=== PATIENT | female | born 1995 | race African-American/Black ===

== ENCOUNTER 2022-09-10 14:07 | Inpatient (IN) | payer OTHER ==
[~2022-09-10] VITALS: Ht 160 cm; Wt 49.9 kg
[2022-09-10] MEDS ORDERED: TESTOSTERONE (14:12)
[2022-09-10] MEDS ORDERED: FAMOTIDINE 20MG/2ML VIAL IV STA (14:48)
[2022-09-10] MEDS ORDERED: MAGNESIUM/ALUMINUM HYDROXIDE/SIMETHICONE 30ML UDC PO STA ×2 (14:48)
[2022-09-10] MEDS ORDERED: ONDANSETRON HCL 4MG/2ML INJ IV STA (14:48)
[2022-09-10] MEDS ORDERED: VISCOUS LIDOCAINE 2% 15 ML UDC PO STA (14:48)
[2022-09-10] MEDS ORDERED: HALOPERIDOL LACTATE 5MG/ML VIAL IM ONE (15:00)
[2022-09-10 16:02] LABS: BASOPHILS % 0.4 % (0.0-2.0); EOSINOPHILS % 0.1 % (0.0-5.0); HEMATOCRIT. 58.4 % (36.0-48.0); HEMOGLOBIN. 19.5 g/dL (12.0-16.0); LYMPHOCYTES % 9.5 % (20.0-50.0); MEAN CORPUSCULAR HEMOGLOBIN 35.1 pg (28.0-32.0); MEAN CORPUSCULAR VOLUME 105.3 fL (81.0-99.0); MEAN PLATELET VOLUME 7.7 fl (7.4-10.4); MONOCYTES % 7.5 % (2.0-8.0); NEUTROPHILS % 82.5 % (40.0-76.0); PLATELET 155 x1000/uL (130-400); RED BLOOD CELL COUNT 5.55 mill/uL (4.2-5.4); RED CELL DISTRIBUTION WIDTH 14.7 % (11.6-14.6)
[2022-09-10 16:13] LABS: CHLORIDE 102 mEq/L (98-107)
[2022-09-10 16:24] LABS: ETHANOL BLOOD < 10 mg/dL
[2022-09-10 16:26] LABS: HCG SCREEN NEGATIVE
[2022-09-10] MEDS ORDERED: KETOROLAC 15MG/ML VIAL IV ONE (16:45)
[2022-09-10] MEDS ORDERED: IOHEXOL-300 100 ML BOTTLE ONE (19:12)
[2022-09-10] MEDS ORDERED: MORPHINE SULFATE 4 MG/ML CPJ (NOT FOR IM USE) IV ONE (19:15)
[2022-09-10] MEDS ORDERED: MEROPENEM 1,000 MG in SODIUM CHLORIDE 0.9% 100 ML IV SCH (19:30)
[2022-09-11] MEDS ORDERED: HYDROCODONE/ACETAMINOPHEN 5/325MG TABLET PO PRN (02:00)
[2022-09-11 05:00] VITALS: BP 132/80
[2022-09-11 05:05] VITALS: BP 132/80
[2022-09-11] MEDS ORDERED: NALOXONE HCL 0.4MG/ML VIAL IV PRN (06:00)
[2022-09-11] MEDS: DEXT 5%/0.45% NACL KCL 20MEQ/L 1,000 ML IV SCH ×2 (07:00→21:24)
[2022-09-11 08:00] VITALS: BP 143/88
[2022-09-11] MEDS: PANTOPRAZOLE SODIUM 40 MG/VIAL IV SCH (09:25)
[2022-09-11] MEDS: ONDANSETRON HCL 4MG/2ML INJ IV PRN ×2 (10:08→18:56)
[2022-09-11] MEDS: MORPHINE SULFATE 2 MG/ML CPJ (NOT FOR IM USE) IV PRN ×3 (10:09→18:57)
[2022-09-11 12:00] VITALS: BP 135/92
[2022-09-11] MEDS ORDERED: LEVOFLOXACIN 750MG PREMIX 150 ML IV SCH (13:00)
[2022-09-11 13:18] LABS: BASOPHILS % 0.1 % (0.0-2.0); HEMATOCRIT. 56.6 % (36.0-48.0); HEMOGLOBIN. 19.1 g/dL (12.0-16.0); LYMPHOCYTES % 7.1 % (20.0-50.0); MEAN CORPUSCULAR HEMOGLOBIN 35.3 pg (28.0-32.0); MEAN CORPUSCULAR VOLUME 104.9 fL (81.0-99.0); NEUTROPHILS % 82.8 % (40.0-76.0); RED CELL DISTRIBUTION WIDTH 14.7 % (11.6-14.6)
[2022-09-11 13:19] LABS: CHLORIDE 103 mEq/L (98-107)
[2022-09-11 13:28] LABS: CREATINE KINASE 122 IU/L (26-192)
[2022-09-11 13:46] LABS: INR 1.3; PROTHROMBIN TIME 13.7 sec (9.6-11.0)
[2022-09-11 14:02] LABS: PLATELET 119 x1000/uL (130-400)
[2022-09-11] MEDS: METRONIDAZOLE 500 MG PREMIX 100 ML IV SCH ×2 (14:57→21:23)
[2022-09-11 16:00] VITALS: BP 147/97
[2022-09-11 16:06] LABS: CLARITY URINE CLEAR (CLEAR); COLOR URINE DARK YELLOW (YELLOW); KETONES URINE 1+ (NEGATIVE); LEUKOCYTE ESTERASE URINE NEGATIVE (NEGATIVE); NITRITE URINE NEGATIVE (NEGATIVE); OCCULT BLOOD URINE 3+ (NEGATIVE); PH URINE 6.5 (4.5-8.0); PROTEIN URINE 2+ (NEGATIVE); SPECIFIC GRAVITY URINE >1.040 (1.005-1.030)
[2022-09-11 16:33] LABS: *AMPHETAMINES SCREEN URINE NEGATIVE (NEGATIVE); *BARBITURATES SCREEN URINE NEGATIVE (NEGATIVE); *BENZODIAZEPINES SCREEN URINE NEGATIVE (NEGATIVE); *COCAINE SCREEN URINE NEGATIVE (NEGATIVE); METHADONE URINE SCREEN NEGATIVE (NEGATIVE); PHENCYCLIDINE URINE SCREEN NEGATIVE (NEGATIVE)
[2022-09-11 16:35] LABS: CANNABINOID URINE SCREEN PRESUMTIVE POSITIVE (NEGATIVE); OPIATES URINE SCREEN PRESUMTIVE POSITIVE (NEGATIVE)
[2022-09-11 20:00] VITALS: BP 133/86
[2022-09-11] MEDS: HYDROMORPHONE HCL/PF 2MG/ML CPJ IV PRN (21:30)
[2022-09-12] VITALS: BP 134/86
[2022-09-12 04:14] VITALS: BP 130/67
[2022-09-12] MEDS: DEXT 5%/0.45% NACL KCL 20MEQ/L 1,000 ML IV SCH ×4 (05:11→23:00)
[2022-09-12] MEDS: METRONIDAZOLE 500 MG PREMIX 100 ML IV SCH ×3 (05:11→20:38)
[2022-09-12] MEDS: ONDANSETRON HCL 4MG/2ML INJ IV PRN ×4 (05:41→20:26)
[2022-09-12 07:27] LABS: HEMATOCRIT. 54.1 % (36.0-48.0); HEMOGLOBIN. 18.3 g/dL (12.0-16.0); MEAN CORPUSCULAR HEMOGLOBIN 35.7 pg (28.0-32.0); MEAN CORPUSCULAR VOLUME 105.2 fL (81.0-99.0); MEAN PLATELET VOLUME 9.1 fl (7.4-10.4); PLATELET 88 x1000/uL (130-400); RED BLOOD CELL COUNT 5.14 mill/uL (4.2-5.4); RED CELL DISTRIBUTION WIDTH 14.6 % (11.6-14.6)
[2022-09-12 08:00] VITALS: BP 155/91
[2022-09-12] MEDS: PANTOPRAZOLE SODIUM 40 MG/VIAL IV SCH (08:11)
[2022-09-12] MEDS: HYDROMORPHONE HCL/PF 2MG/ML CPJ IV PRN ×3 (10:36→20:36)
[2022-09-12 11:02] LABS: CHLORIDE 101 mEq/L (98-107)
[2022-09-12 11:27] LABS: AMYLASE 378 IU/L (25-115)
[2022-09-12 12:00] VITALS: BP 135/80
[2022-09-12] MEDS: CEFEPIME 1,000 MG in DEXTROSE 5% WATER 50 ML IV SCH (13:28)
[2022-09-12 14:08] LABS: PLATELET ESTIMATE DECREASED
[2022-09-12 16:00] VITALS: BP 154/91
[2022-09-12 20:00] VITALS: BP 159/109
[2022-09-13] VITALS: BP 124/81
[2022-09-13] MEDS: ONDANSETRON HCL 4MG/2ML INJ IV PRN ×6 (00:23→21:36)
[2022-09-13] MEDS: HYDROMORPHONE HCL/PF 2MG/ML CPJ IV PRN ×5 (00:27→21:43)
[2022-09-13 04:09] VITALS: BP 144/99
[2022-09-13] MEDS: METRONIDAZOLE 500 MG PREMIX 100 ML IV SCH ×3 (05:00→21:36)
[2022-09-13] MEDS: DEXT 5%/0.45% NACL KCL 20MEQ/L 1,000 ML IV SCH (07:00)
[2022-09-13 07:40] LABS: HEMATOCRIT. 50.3 % (36.0-48.0); HEMOGLOBIN. 17.3 g/dL (12.0-16.0); MEAN CORPUSCULAR HEMOGLOBIN 35.9 pg (28.0-32.0); MEAN CORPUSCULAR VOLUME 104.2 fL (81.0-99.0); RED BLOOD CELL COUNT 4.83 mill/uL (4.2-5.4); RED CELL DISTRIBUTION WIDTH 14.5 % (11.6-14.6)
[2022-09-13 08:00] VITALS: BP 112/60
[2022-09-13] MEDS: PANTOPRAZOLE SODIUM 40 MG/VIAL IV SCH (09:00)
[2022-09-13 12:00] VITALS: BP 125/85
[2022-09-13] MEDS: CEFEPIME 1,000 MG in DEXTROSE 5% WATER 50 ML IV SCH (12:18)
[2022-09-13 16:00] VITALS: BP 128/87
[2022-09-13] MEDS: METOCLOPRAMIDE HCL 10MG/2ML VIAL IV SCH ×2 (17:23→23:44)
[2022-09-13 18:24] LABS: MEAN PLATELET VOLUME 9.3 fl (7.4-10.4); PLATELET 78 x1000/uL (130-400)
[2022-09-13 18:26] LABS: PLATELET ESTIMATE DECREASED
[2022-09-13] MEDS ORDERED: DIATR MEGLU/DIATRIZOATE SOLN 30ML PO NR (20:00)
[2022-09-13 20:01] VITALS: BP 95/71
[2022-09-14 00:19] VITALS: BP 126/51
[2022-09-14] MEDS: ONDANSETRON HCL 4MG/2ML INJ IV PRN ×3 (02:12→13:59)
[2022-09-14] MEDS: HYDROMORPHONE HCL/PF 2MG/ML CPJ IV PRN ×4 (02:14→20:35)
[2022-09-14] MEDS: DEXT 5%/0.45% NACL KCL 20MEQ/L 1,000 ML IV SCH ×5 (02:28→23:40)
[2022-09-14 04:00] VITALS: BP 126/51
[2022-09-14] MEDS: METRONIDAZOLE 500 MG PREMIX 100 ML IV SCH ×3 (05:13→20:20)
[2022-09-14] MEDS: METOCLOPRAMIDE HCL 10MG/2ML VIAL IV SCH ×4 (05:14→23:41)
[2022-09-14 06:57] LABS: BASOPHILS % 0.1 % (0.0-2.0); EOSINOPHILS % 0.2 % (0.0-5.0); HEMATOCRIT. 44.7 % (36.0-48.0); HEMOGLOBIN. 15.3 g/dL (12.0-16.0); MEAN CORPUSCULAR HEMOGLOBIN 35.8 pg (28.0-32.0); MEAN CORPUSCULAR VOLUME 104.6 fL (81.0-99.0); MEAN PLATELET VOLUME 9.6 fl (7.4-10.4); MONOCYTES % 5.3 % (2.0-8.0); NEUTROPHILS % 85.4 % (40.0-76.0); PLATELET 113 x1000/uL (130-400); RED BLOOD CELL COUNT 4.28 mill/uL (4.2-5.4); RED CELL DISTRIBUTION WIDTH 14.5 % (11.6-14.6)
[2022-09-14 08:00] VITALS: BP 119/81
[2022-09-14] MEDS: PANTOPRAZOLE SODIUM 40 MG/VIAL IV SCH (09:21)
[2022-09-14] MEDS ORDERED: ZOLPIDEM TARTRATE 5MG TABLET PO PRN (11:15)
[2022-09-14 12:00] VITALS: BP 109/71
[2022-09-14] MEDS: CEFEPIME 1,000 MG in DEXTROSE 5% WATER 50 ML IV SCH (13:51)
[2022-09-14 16:00] VITALS: BP 128/78
[2022-09-14 16:03] LABS: CHLORIDE 101 mEq/L (98-107)
[2022-09-14 16:19] LABS: CHLORIDE 101 mEq/L (98-107)
[2022-09-14] MEDS ORDERED: IOHEXOL-300 100 ML BOTTLE ONE (17:49)
[2022-09-14] MEDS: HYDROCODONE/ACETAMINOPHEN 5/325MG TABLET PO PRN (18:51)
[2022-09-14 20:00] VITALS: BP 118/69
[2022-09-15] VITALS: BP 138/55
[2022-09-15] MEDS: ONDANSETRON HCL 4MG/2ML INJ IV PRN ×2 (05:59→09:09)
[2022-09-15] MEDS: METRONIDAZOLE 500 MG PREMIX 100 ML IV SCH ×2 (06:01→13:29)
[2022-09-15] MEDS: HYDROMORPHONE HCL/PF 2MG/ML CPJ IV PRN (06:09)
[2022-09-15] MEDS: DEXT 5%/0.45% NACL KCL 20MEQ/L 1,000 ML IV SCH (07:02)
[2022-09-15 07:55] LABS: BASOPHILS % 0.1 % (0.0-2.0); EOSINOPHILS % 0.4 % (0.0-5.0); HEMATOCRIT. 45.3 % (36.0-48.0); HEMOGLOBIN. 15.3 g/dL (12.0-16.0); LYMPHOCYTES % 11.4 % (20.0-50.0); MEAN CORPUSCULAR HEMOGLOBIN 35.4 pg (28.0-32.0); MEAN CORPUSCULAR VOLUME 104.9 fL (81.0-99.0); MEAN PLATELET VOLUME 8.3 fl (7.4-10.4); NEUTROPHILS % 80.1 % (40.0-76.0); PLATELET 155 x1000/uL (130-400); RED BLOOD CELL COUNT 4.32 mill/uL (4.2-5.4); RED CELL DISTRIBUTION WIDTH 14.5 % (11.6-14.6)
[2022-09-15 08:00] VITALS: BP 133/67
[2022-09-15] MEDS: PANTOPRAZOLE SODIUM 40 MG/VIAL IV SCH (08:43)
[2022-09-15 09:11] VITALS: BP 127/65
[2022-09-15] MEDS: HYDROCODONE/ACETAMINOPHEN 5/325MG TABLET PO PRN (09:11)
[2022-09-15 09:12] LABS: CHLORIDE 102 mEq/L (98-107)
[2022-09-15] MEDS: CEFEPIME 1,000 MG in DEXTROSE 5% WATER 50 ML IV SCH (13:29)
[2022-09-15] MEDS ORDERED: METRONIDAZOLE 500MG TABLET PO SCH (22:00)
== END 2022-09-15 17:16 | disposition home or self-care (01) | DRG 282 ==
LOC: ER 14:14 → 4WST 19:13 → EDBEDREQ 19:20
PROVIDERS: ADMIT Internal Medicine; ATTEND Internal Medicine
DX: K85.21 Alcohol induced acute pancreatitis with uninfected necrosis (principal); M72.6 Necrotizing fasciitis; R18.8 Other ascites; F10.10 Alcohol abuse, uncomplicated; F12.90 Cannabis use, unspecified, uncomplicated; Z87.891 Personal history of nicotine dependence; Z88.0 Allergy status to penicillin
CPT/HCPCS: 36415; 74177; 76700; 80048; 80053; 80076; 80305; 80320; 81003; 82150; 82550; 82962; 83605; 84478; 84703; 85025; 93005; 99285; C9113; J0692; J1170; J1630; J1885; J1956; J2185; J2270; J2405; J2765; J3490; J7050; J7060; Q9967; G0480